=== PATIENT | female | born 1950 | race Caucasian/White ===

== ENCOUNTER 2019-05-25 09:06 | Day surgery (SDC) | payer MEDICARE, OTHER ==
[~2019-05-25] VITALS: Ht 157.5 cm; Wt 63.0 kg
[~2019-05-25 09:06] MED LIST: ASPIRIN EC325 MG PO; B COMPLEX # 11 EACH PO; ESOMEPRAZOLE MA40 MG PO; HYDROCHLOROTH12.5 MG PO; LISINOPRIL20 MG PO; METOPROLOL TART25 MG PO; ONDANSETRON ODT8 MG PO; SIMVASTATIN40 MG PO; TYLENOL325 M1 PO
[2019-05-25] MEDS ORDERED: NEXIUM40 MG PO (09:25)
--- NOTE | 2019-05-25 11:40 | NUR ---
05/25/19 1140 Naomy Casey 1133 PATIENT ARRIVES TO PACU AWAKE, BUT DOES NOT REMEMBER PROCEDURE. RESP EVEN AND UNLABORED, ROOM AIR SATS >90%. DENIES PAIN OR NAUSEA. 1140 PATIENT REPOSITIONS SELF IN BED. PUTS GLASSES BACK ON. DRINKING APPLE JUICE. DENIES PAIN OR NAUSEA.
--- NOTE | 2019-05-25 16:56 | OR ---
[facility] [address] [place], [place] [address] Signed DATE OF OPERATION: 05/25/2019 SURGEON: Ludwig Clark MD PREOPERATIVE DIAGNOSES: 1. Epigastric abdominal pain. 2. Anorexia and nausea. 3. Weight loss. 4. Change in bowel habits with diarrhea and constipation. 5. Recently treated Helicobacter pylori. POSTOPERATIVE DIAGNOSES: 1. Mild gastroduodenitis. 2. Question proximal esophagitis versus scope trauma. PROCEDURES: EGD with CLOtest and biopsies of the duodenum, pyloric bulb, antrum, GE junction, proximal esophagus. ESTIMATED BLOOD LOSS: None. INDICATIONS: Magali is a 69-year-old female, who was asked to see me for an upper endoscopy. She has been having annoying epigastric abdominal pain. It seems to be better after she eats. She also has been anorexic and having some nausea. She is now down to 15 pounds over the last 3 months. She said she generally loves to eat. She feels like she has had a change in bowel habits with diarrhea and constipation. She thinks maybe there has been some blood in that and maybe there was some melena. She was positive for Helicobacter pylori, so she finished up her clarithromycin, metronidazole and her Nexium. It looks like the clarithromycin may have upset her stomach. She is now maintained on her Nexium. She has had ongoing symptoms. Consequently, she was asked to see me for an upper endoscopy. She just had her colonoscopy last year. In the office, I met with Magali and her daughter. We had reviewed the above findings in detail. They understand endoscopy quite well. Nevertheless, I gave them a pamphlet on upper endoscopy, so they could read that in detail at home. They also understands the need for IV conscious sedation. She understand she will need someone to take her home afterwards. They had expressed understanding and wished to proceed. PROCEDURE NOTE: Electronically Signed By: LUDWIG CLARK MD 05/25/19 1656 PATIENT NAME: MAGALI FRIEND OPERATIVE REPORT DATE OF : 48 REPORT #: [id number] PHYSICIAN: LUDWIG CLARK MD PCP: PANCHO WEISS MD REPORT IS CONFIDENTIAL AND NOT TO BE RELEASED WITHOUT AUTHORIZATION [facility] [address] [place], [place] [address] Signed Magali was taken into our endoscopy suite and placed in the supine semi-recumbent position. She was given IV sedation with 4 mg of Versed and 100 mcg of fentanyl. The bite block was utilized for the case. The adult gastroscope was introduced and advanced quite readily down the esophagus through the stomach out into the duodenum itself under direct visualization without difficulty. The duodenum proper was unremarkable. We went ahead and took a biopsy because of the history of diarrhea. As we came back toward the pyloric bulb, we could see lymphoplasia and just very little minute irritation. We took a biopsy of the pyloric bulb for pathologic review. Similarly, she had very faint erythematous changes mainly in the distal half of her stomach. It suggests she may have resolving H pylori associated gastritis. We took a biopsy from the antrum for pathologic review as well as CLOtest. Upon retroflexion of the scope, she may have a little hourglassing around the midportion of her stomach. This would suggest she could have a large hiatal hernia with half her stomach up in the chest. However, it was very difficult to ascertain that clearly on the endoscopy. She could consider a barium swallow. However, the GE junction itself was fine. No obvious hiatal hernia right at the GE junction. No gastric or esophageal varices. No ulcerations in the duodenum or stomach. The scope had been withdrawn up through the GE junction, which was compliant without stricture. Her Z-line is basically intact. We went ahead and took a single biopsy right on the edge of the Z-line for pathologic review. The distal and middle esophagus were unremarkable. In the proximal esophagus just a few centimeters below the upper esophageal sphincter, we saw a linear area of patchy erythematous change, may have very well been from some scope trauma. We did not see that going in. Nevertheless, we went ahead and took a biopsy on the end of that for pathologic review. The scope was then withdrawn in the posterior oropharynx. The vocal cords and arytenoids were completely fine. After this, the scope was completely withdrawn. Magali tolerated the procedure quite well. RECOMMENDATIONS: I will see Magali back in my office in 7 to 14 days to review her results, particularly the CLOtest. If she would like, she might consider a barium swallow as well to evaluate for hiatal hernia. Ludwig Clark MD ALB/GEORGETTEL /[id number] Electronically Signed By: LUDWIG CLARK MD 05/25/19 1656 PATIENT NAME: MAGALI FRIEND OPERATIVE REPORT DATE OF : 48 REPORT #: [id number] PHYSICIAN: LUDWIG CLARK MD PCP: PANCHO WEISS MD REPORT IS CONFIDENTIAL AND NOT TO BE RELEASED WITHOUT AUTHORIZATION [facility] [address] [place], [place] [address] Signed cc: MD Rula Luo FNP Andrea Carrasco, MD Copies: LUDWIG CLARK MD, MARY FNP ~ Electronically Signed By: LUDWIG CLARK MD 05/25/19 1656 PATIENT NAME: MAGALI FRIEND OPERATIVE REPORT DATE OF : 48 REPORT #: [id number] PHYSICIAN: LUDWIG CLARK MD PCP: PANCHO WEISS MD REPORT IS CONFIDENTIAL AND NOT TO BE RELEASED WITHOUT AUTHORIZATION
== END 2019-05-25 12:05 | disposition home or self-care (01) ==
LOC: DS 09:06
PROVIDERS: Colon & Rectal Surgery
PROC: 0DB78ZX Excision of Stomach, Pylorus, Via Natural or Artificial Opening Endoscopic, Diagnostic (ICD-10-PCS; 2019-05-25)
PROC: 0DB48ZX Excision of Esophagogastric Junction, Via Natural or Artificial Opening Endoscopic, Diagnostic (ICD-10-PCS; 2019-05-25)
PROC: 0DB18ZX Excision of Upper Esophagus, Via Natural or Artificial Opening Endoscopic, Diagnostic (ICD-10-PCS; 2019-05-25)
PROC: 0DB98ZX Excision of Duodenum, Via Natural or Artificial Opening Endoscopic, Diagnostic (ICD-10-PCS; principal; 2019-05-25 10:45)
DX: K29.50 Unspecified chronic gastritis without bleeding (principal); K29.80 Duodenitis without bleeding; R63.0 Anorexia; R63.4 Abnormal weight loss; R19.4 Change in bowel habit; K59.00 Constipation, unspecified; R19.7 Diarrhea, unspecified; I25.2 Old myocardial infarction; I10 Essential (primary) hypertension; E78.5 Hyperlipidemia, unspecified; Z95.5 Presence of coronary angioplasty implant and graft; Z88.1 Allergy status to other antibiotic agents; Z79.82 Long term (current) use of aspirin; Z79.899 Other long term (current) drug therapy
CPT/HCPCS: 86677; 99153; G0500; J2250; J3010

== ENCOUNTER 2019-06-09 10:49 | Emergency (ER) | payer MEDICARE, OTHER ==
[~2019-06-09] VITALS: Ht 157.5 cm; Wt 63.0 kg
[~2019-06-09 10:49] MED LIST changes: +NEXIUM40 MG PO
== END 2019-06-09 12:21 | disposition short-term general hospital (02) ==
LOC: ED 10:49
DX: N19 Unspecified kidney failure (principal); R63.4 Abnormal weight loss; Z87.891 Personal history of nicotine dependence; Z88.1 Allergy status to other antibiotic agents; Z88.2 Allergy status to sulfonamides; Z79.82 Long term (current) use of aspirin; Z79.899 Other long term (current) drug therapy
CPT/HCPCS: 99285

== ENCOUNTER 2020-08-05 09:01 | Emergency (ER) | payer MEDICARE, OTHER ==
[~2020-08-05] VITALS: Ht 157.5 cm; Wt 59.0 kg
--- OUTSIDE RECORDS SUMMARY | 2020-08-05 09:04 | XMS ---
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 CARE PROVIDERS There are no care providers on record at this time. Laquita has no Care Guidelines for this patient. Lachelle VISIT COUNT (12 MO.) 1 [place] [address] MARIAM Frias TOTAL 2 NOTE: Visits indicate total known visits. ED/C VISIT TRACKING (12 MO.) 08/05/2020 09:02 [facility] [place] TYPE: Emergency COMPLAINT: - [facility] DIAGNOSES: - Dependence on renal dialysis - Dizziness - Dizziness and giddiness - Wound - End stage renal disease - Shortness of Breath INPATIENT VISIT TRACKING (12 MO.) No inpatient visits to display in this time frame [email or web address]
[2020-08-05] MEDS ORDERED: AZITHROMYCIN250 MG PO (09:07)
[2020-08-05] MEDS ORDERED: AMLODIPINE BESYL5 MG PO (09:07)
[2020-08-05] MEDS ORDERED: METOPROLOL SUCC25 MG PO (09:08)
[2020-08-05] MEDS ORDERED: OMEPRAZOLE20 MG PO (09:08)
[2020-08-05] MEDS ORDERED: ONDANSETRON HCL8 MG PO (09:08)
[2020-08-05] MEDS ORDERED: ROSUVASTATIN CA10 MG PO (09:09)
[2020-08-05] MEDS ORDERED: PREDNISONE20 MG PO (09:32)
[2020-08-05] MEDS ORDERED: OMEPRAZOLE20 M2 PO (09:33)
--- NOTE | 2020-08-05 14:19 | EKG ---
[facility] [address] [facility] [place], [place] [address] Signed Normal sinus rhythm Normal ECG No previous ECGs available Confirmed by HYACINTH MCKNIGHT MD ([id number]) on 08/05/2020 2:19:15 PM Electronically Signed By: HYACINTH MCKNIGHT MD 08/05/20 1419 PATIENT NAME: LANEY FRIEND Electrocardiogram DATE OF : 48 PHYSICIAN: HYACINTH MCKNIGHT MD REPORT #: [id number] REPORT IS CONFIDENTIAL AND NOT TO BE RELEASED WITHOUT AUTHORIZATION
== END 2020-08-05 15:35 | disposition short-term general hospital (02) ==
LOC: ED 09:01
DX: J18.9 Pneumonia, unspecified organism (principal); I50.9 Heart failure, unspecified; Z99.2 Dependence on renal dialysis; Z20.828 Contact with and (suspected) exposure to other viral communicable diseases; Z87.891 Personal history of nicotine dependence; Z88.8 Allergy status to other drugs, medicaments and biological substances; Z88.1 Allergy status to other antibiotic agents; Z88.2 Allergy status to sulfonamides; Z79.899 Other long term (current) drug therapy; Z79.82 Long term (current) use of aspirin; Z79.52 Long term (current) use of systemic steroids
CPT/HCPCS: 71045; 80048; 81001; 83605; 83735; 83880; 84484; 85025; 93005; 93010; 96374; 99285-25; J1940; U0003

== ENCOUNTER 2020-10-21 20:50 | Emergency (ER) | payer MEDICARE, OTHER ==
[~2020-10-21] VITALS: Ht 154.9 cm; Wt 59.9 kg
[~2020-10-21 20:50] MED LIST changes: +AMLODIPINE BESYL5 MG PO; +AZITHROMYCIN250 MG PO; +METOPROLOL SUCC25 MG PO; +OMEPRAZOLE20 M2 PO; +OMEPRAZOLE20 MG PO; +ONDANSETRON HCL8 MG PO; +PREDNISONE20 MG PO; +ROSUVASTATIN CA10 MG PO
[2020-10-21] MEDS ORDERED: IPRATROPIUM BRO30 ML NAS (21:26)
[2020-10-21] MEDS ORDERED: AUGMENTIN 875-1 EACH PO (22:20)
== END 2020-10-21 22:33 | disposition home or self-care (01) ==
LOC: ED 20:50
PROC: 093K7ZZ Control Bleeding in Nasal Mucosa and Soft Tissue, Via Natural or Artificial Opening (ICD-10-PCS; principal; 2020-10-21)
DX: R04.0 Epistaxis (principal); Z87.891 Personal history of nicotine dependence; Z88.1 Allergy status to other antibiotic agents; Z88.2 Allergy status to sulfonamides; Z79.899 Other long term (current) drug therapy; Z79.82 Long term (current) use of aspirin; Z99.2 Dependence on renal dialysis
CPT/HCPCS: 30903; 99283-25

== ENCOUNTER 2020-12-22 07:41 | Emergency (ER) | payer MEDICARE, OTHER ==
[~2020-12-22] VITALS: Ht 154.9 cm; Wt 59.9 kg
[~2020-12-22 07:41] MED LIST changes: +AUGMENTIN 875-1 EACH PO; +IPRATROPIUM BRO30 ML NAS
[2020-12-22] MEDS ORDERED: IPRAT-ALBUT 0.5-3 ML INH (07:59)
== END 2020-12-22 11:30 | disposition home or self-care (01) ==
LOC: ED 07:41
DX: R06.00 Dyspnea, unspecified (principal); I50.9 Heart failure, unspecified; J84.10 Pulmonary fibrosis, unspecified; Z87.891 Personal history of nicotine dependence; Z88.8 Allergy status to other drugs, medicaments and biological substances; Z88.1 Allergy status to other antibiotic agents; Z88.2 Allergy status to sulfonamides; Z79.899 Other long term (current) drug therapy; Z79.82 Long term (current) use of aspirin
CPT/HCPCS: 71045; 80053; 83880; 84484; 85025; 99285-25

== ENCOUNTER → 2021-01-05 | Emergency (ER) | payer MEDICARE, OTHER ==
[~2021-01-05] VITALS: Ht 154.9 cm; Wt 59.0 kg
[~2021-01-05] MED LIST changes: +IPRAT-ALBUT 0.5-3 ML INH
--- OUTSIDE RECORDS SUMMARY | 2021-01-05 14:36 | XMS ---
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 Laquita has no Care Guidelines for this patient. [facility]achelle [facility] MO.) [facility] T[facility] 4 NOTE: Visits indicate total known visits. ED/UCC VISIT TRACKING (12 MO.) 01/05/2021 14:31 [facility] [place] TYPE: Emergency COMPLAINT: - BLOOD IN STOOL 12/22/2020 07:41 [facility] [place] TYPE: Emergency COMPLAINT: - SOB DIAGNOSES: - Allergy status to sulfonamides - Allergy status to other antibiotic agents - Heart failure, unspecified - stay cutter (current) use of aspirin - Other echocardiograph technician (current) drug therapy - Dyspnea, unspecified - Personal history of nicotine dependence - Shortness of breath - Allergy status to other drugs, medicaments and biological substances - Pulmonary fibrosis, unspecified 10/21/2020 20:50 [facility] [place] TYPE: Emergency COMPLAINT: - NOSE BLEED THAT WILL NOT STOP DIAGNOSES: - Epistaxis - stay cutter (current) use of aspirin - Other fpc (current) drug therapy - Allergy status to other antibiotic agents - Allergy status to sulfonamides - Personal history of nicotine dependence - Dependence on renal dialysis 08/05/2020 09:02 [facility] [place] TYPE: Emergency COMPLAINT: - SOB DIAGNOSES: - Allergy status to sulfonamides - Personal history of nicotine dependence - Other fpc (current) drug therapy - stay cutter (current) use of systemic steroids - Allergy status to other antibiotic agents - Heart failure, unspecified - Allergy status to other drugs, medicaments and biological substances - Contact with and (suspected) exposure to other viral communicable diseases - Allergy status to sulfonamides - stay cutter (current) use of aspirin - Pneumonia, unspecified organism - Allergy status to other drugs, medicaments and biological substances - Allergy status to other antibiotic agents - Dependence on renal dialysis - Shortness of breath INPATIENT VISIT TRACKING (12 MO.) 08/05/2020 19:11 [facility] [place] TYPE: General Medicine COMPLAINT: - Pneumonia DIAGNOSES: - Pneumonia [email or web address]
--- NOTE | 2021-01-07 13:14 | EKG ---
[facility] [address] [facility] [place] [address] Signed Atrial flutter with 2:[address] and T wave abnormality Abnormal ECG When compared with ECG of 05-AUG-2020 09:18, Atrial flutter has replaced Sinus rhythm ST now depressed in Inferior leads Confirmed by DEB PURVIS MD ([id number]) on 01/07/2021 1:13:58 PM Electronically Signed By: DEB PURVIS MD 01/07/21 1314 PATIENT NAME: LANEY FRIEND Electrocardiogram DATE OF : 48 PHYSICIAN: DEB PURVIS MD REPORT #: [id number] REPORT IS CONFIDENTIAL AND NOT TO BE RELEASED WITHOUT AUTHORIZATION
== END ==
LOC: ED 14:30
DX: K62.5 Hemorrhage of anus and rectum (principal); I48.91 Unspecified atrial fibrillation; Z88.8 Allergy status to other drugs, medicaments and biological substances; Z88.1 Allergy status to other antibiotic agents; Z88.2 Allergy status to sulfonamides; Z79.899 Other long term (current) drug therapy; Z79.82 Long term (current) use of aspirin
CPT/HCPCS: 74176; 74177; 80053; 85025; 85610; 85730; 86850; 86900; 86901; 93005; 93010; 96374; 96376; 99285-25; C9803; J7040; Q9967; U0003

== ENCOUNTER 2021-06-29 17:07 | Emergency (ER) | payer MEDICARE, OTHER ==
[~2021-06-29] VITALS: Ht 154.9 cm; Wt 59.6 kg
[2021-06-29] MEDS ORDERED: BISOPROLOL FUMAR5 MG PO (17:27)
[2021-06-29] MEDS ORDERED: PREDNISONE2.5 MG PO (17:29)
[2021-06-29] MEDS ORDERED: DOFETILIDE125 MCG PO (17:29)
--- NOTE | 2021-06-30 18:10 | EKG ---
[facility] [address] [facility] [place] [address] Signed Sinus rhythm with occasional premature ventricular complexes Nonspecific ST and T wave abnormality Abnormal ECG When compared with ECG of 05-JAN-2021 14:48, Sinus rhythm has replaced Atrial flutter ST no longer depressed in Inferior leads T wave amplitude has increased in Anterior leads Confirmed by HYACINTH MCKNIGHT MD ([id number]) on 06/30/2021 6:10:09 PM Electronically Signed By: HYACINTH MCKNIGHT MD 06/30/21 1810 PATIENT NAME: LANEY FRIEND Electrocardiogram DATE OF : 48 PHYSICIAN: HYACINTH MCKNIGHT MD REPORT #: [id number] REPORT IS CONFIDENTIAL AND NOT TO BE RELEASED WITHOUT AUTHORIZATION
== END 2021-06-29 20:40 | disposition home or self-care (01) ==
LOC: ED 17:07
DX: R00.2 Palpitations (principal); Z88.8 Allergy status to other drugs, medicaments and biological substances; Z88.2 Allergy status to sulfonamides; Z88.1 Allergy status to other antibiotic agents; Z79.899 Other long term (current) drug therapy; Z79.82 Long term (current) use of aspirin; Z79.52 Long term (current) use of systemic steroids
CPT/HCPCS: 80053; 83735; 84484; 85025; 93005; 93010; 99285-25

== ENCOUNTER 2021-08-30 19:34 | Emergency (ER) | payer MEDICARE, OTHER ==
[~2021-08-30] VITALS: Ht 154.9 cm; Wt 60.5 kg
[~2021-08-30 19:34] MED LIST changes: +BISOPROLOL FUMAR5 MG PO; +DOFETILIDE125 MCG PO; +PREDNISONE2.5 MG PO
--- NOTE | 2021-09-01 07:43 | EKG ---
[facility] [address] [facility] [place] [address] Signed Normal sinus rhythm Nonspecific ST abnormality Abnormal ECG When compared with ECG of 29-JUN-2021 17:12, premature ventricular complexes are no longer present Confirmed by HYACINTH MCKNIGHT MD ([id number]) on 09/01/2021 7:42:53 AM Electronically Signed By: HYACINTH MCKNIGHT MD 09/01/21 0743 PATIENT NAME: LANEY FRIEND Electrocardiogram DATE OF : 48 PHYSICIAN: HYACINTH MCKNIGHT MD REPORT #: [id number] REPORT IS CONFIDENTIAL AND NOT TO BE RELEASED WITHOUT AUTHORIZATION
== END 2021-08-30 22:10 | disposition home or self-care (01) ==
LOC: ED 19:34
DX: R41.82 Altered mental status, unspecified (principal); Z20.822 Contact with and (suspected) exposure to COVID-19; Z88.8 Allergy status to other drugs, medicaments and biological substances; Z88.1 Allergy status to other antibiotic agents; Z88.2 Allergy status to sulfonamides; Z79.899 Other long term (current) drug therapy; Z79.82 Long term (current) use of aspirin; Z79.52 Long term (current) use of systemic steroids
CPT/HCPCS: 71045; 80053; 81001; 83605; 85025; 99285-25; C9803; G0480; U0003

== ENCOUNTER 2021-10-10 09:16 | Emergency (ER) | payer MEDICARE, OTHER ==
[~2021-10-10] VITALS: Ht 154.9 cm; Wt 60.3 kg
--- OUTSIDE RECORDS SUMMARY | 2021-10-10 09:24 | XMS ---
PreManage Notification: LANEY FRIEND Security Sign Writer Hand Events No recent Security Events currently on file CRITERIA MET - [facility] [place] [facility] - 2 Visits in 30 Days CARE PROVIDERS [facility] 01/08/2021-Current PHONE: Unknown Laquita has no Care Guidelines for this patient. Lachelle VISIT COUNT (12 MO.) [address] [place] [address] Rula Parrish [address] [place] [address] TOTAL 7 NOTE: Visits indicate total known visits. ED/UCC VISIT TRACKING (12 MO.) 10/10/2021 09:16 [facility] [place] TYPE: Emergency COMPLAINT: - NOSE BLEED 10/03/2021 17:54 [facility] TYPE: Emergency DIAGNOSES: - afib, fatigue - Fatigue 08/30/2021 19:34 [facility] [place] TYPE: Emergency COMPLAINT: - ALTERED MENTAL STATUS DIAGNOSES: - Allergy status to other antibiotic agents - group home (current) use of systemic steroids - Allergy status to other drugs, medicaments and biological substances - Altered mental status, unspecified - group home (current) use of aspirin - Other half-way (current) drug therapy - Allergy status to sulfonamides 06/29/2021 17:07 [facility] [place] TYPE: Emergency COMPLAINT: - HEART PALPATATIONS DIAGNOSES: - Allergy status to sulfonamides - Other half-way (current) drug therapy - Palpitations - Allergy status to other antibiotic agents - group home (current) use of aspirin - Allergy status to other drugs, medicaments and biological substances - group home (current) use of systemic steroids 01/05/2021 14:31 [facility] [place] TYPE: Emergency COMPLAINT: - BLOOD IN STOOL DIAGNOSES: - Unspecified atrial fibrillation - Other half-way (current) drug therapy - Allergy status to sulfonamides - extermination inspector (current) use of aspirin - Shortness of breath - Allergy status to other antibiotic agents - Allergy status to other drugs, medicaments and biological substances - Hemorrhage of anus and rectum - Hemorrhage of anus and rectum 12/22/2020 07:41 [facility] [place] TYPE: Emergency COMPLAINT: - SOB DIAGNOSES: - Allergy status to sulfonamides - Allergy status to other antibiotic agents - Heart failure, unspecified - extermination inspector (current) use of aspirin - Other half-way (current) drug therapy - Dyspnea, unspecified - Personal history of nicotine dependence - Shortness of breath - Allergy status to other drugs, medicaments and biological substances - Pulmonary fibrosis, unspecified 10/21/2020 20:[address] [facility] [place] TYPE: Emergency COMPLAINT: - NOSE BLEED THAT WILL NOT STOP DIAGNOSES: - Epistaxis - group home (current) use of aspirin - Other half-way (current) drug therapy - Allergy status to other antibiotic agents - Allergy status to sulfonamides - Personal history of nicotine dependence - Dependence on renal dialysis INPATIENT VISIT TRACKING (12 MO.) No inpatient visits to display in this time frame [email or web address]
[2021-10-10] MEDS ORDERED: ELIQUIS5 MG PO (09:34)
== END 2021-10-10 13:01 | disposition home or self-care (01) ==
LOC: ED 09:16
DX: R04.0 Epistaxis (principal); Z88.8 Allergy status to other drugs, medicaments and biological substances; Z88.2 Allergy status to sulfonamides; Z88.1 Allergy status to other antibiotic agents; Z79.899 Other long term (current) drug therapy; Z79.82 Long term (current) use of aspirin; Z79.52 Long term (current) use of systemic steroids
CPT/HCPCS: 30903; 99283-25

== ENCOUNTER 2021-10-12 18:09 | Emergency (ER) | payer MEDICARE, OTHER ==
[~2021-10-12] VITALS: Ht 154.9 cm; Wt 60.5 kg
[~2021-10-12 18:09] MED LIST changes: +ELIQUIS5 MG PO
--- OUTSIDE RECORDS SUMMARY | 2021-10-12 18:14 | XMS ---
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 Lachelle VISIT COUNT (12 MO.) 1 [facility] Rula Parrish [address] [place] [address] TOTAL 8 NOTE: Visits indicate total known visits. ED/UCC VISIT TRACKING (12 MO.) 10/12/2021 18:10 [facility] TYPE: Emergency COMPLAINT: - LOW OXYGEN LEVELS 10/10/2021 09:16 [facility] [place] TYPE: Emergency COMPLAINT: - NOSE BLEED 10/03/2021 17:54 [facility] [place] TYPE: Emergency DIAGNOSES: - afib, fatigue - Fatigue 08/30/2021 19:34 [facility] [place] TYPE: Emergency COMPLAINT: - ALTERED MENTAL STATUS DIAGNOSES: - Allergy status to other antibiotic agents - long term care pharmacist (current) use of systemic steroids - Allergy status to other drugs, medicaments and biological substances - Altered mental status, unspecified - long term care pharmacist (current) use of aspirin - Other alf (current) drug therapy - Allergy status to sulfonamides 06/29/2021 17:07 [facility] [place] [facility] [place] TYPE: Emergency COMPLAINT: - HEART PALPATATIONS DIAGNOSES: - Allergy status to sulfonamides - Other intermediate frame tender (current) drug therapy - Palpitations - Allergy status to other antibiotic agents - long term care pharmacist (current) use of aspirin - Allergy status to other drugs, medicaments and biological substances - shelter (current) use of systemic steroids 01/05/2021 14:31 [facility] [place] [facility] [place] TYPE: Emergency COMPLAINT: - BLOOD IN STOOL DIAGNOSES: - Unspecified atrial fibrillation - Other intermediate frame tender (current) drug therapy - Allergy status to sulfonamides - long term care pharmacist (current) use of aspirin - Shortness of [...] antibiotic agents - Heart failure, unspecified - long term care pharmacist (current) use of aspirin - Other intermediate frame tender (current) drug therapy - Dyspnea, unspecified - Personal history of nicotine dependence - Shortness of breath - Allergy status to other drugs, medicaments and biological substances - Pulmonary fibrosis, unspecified 10/21/2020 20:50 [facility] [place] TYPE: Emergency COMPLAINT: - NOSE BLEED THAT WILL NOT STOP DIAGNOSES: - Epistaxis - long term care pharmacist (current) use of aspirin - Other intermediate frame tender (current) drug therapy - Allergy status to other antibiotic agents - Allergy status to sulfonamides - Personal history of nicotine dependence - Dependence on renal dialysis INPATIENT VISIT TRACKING (12 MO.) No inpatient visits to display in this time frame [id number]
== END 2021-10-12 19:42 | disposition home or self-care (01) ==
LOC: ED 18:09
DX: R04.0 Epistaxis (principal); Z88.1 Allergy status to other antibiotic agents; Z88.8 Allergy status to other drugs, medicaments and biological substances; Z79.899 Other long term (current) drug therapy; Z79.82 Long term (current) use of aspirin
CPT/HCPCS: 99284

== ENCOUNTER 2022-05-14 21:43 | Emergency (ER) | payer MEDICARE, OTHER ==
[~2022-05-14] VITALS: Ht 154.9 cm; Wt 60.5 kg
[2022-05-14] MEDS ORDERED: FUROSEMIDE80 MG PO (22:36)
--- NOTE | 2022-05-15 07:19 | EKG ---
[facility] [address] [facility] [place] [address] Signed Sinus rhythm with premature atrial complexes RSR' or QR pattern in V1 suggests right ventricular conduction delay Nonspecific ST and T wave abnormality Prolonged QT Abnormal ECG When compared with ECG of 30-AUG-2021 19:52, premature atrial complexes are now present Confirmed by HYACINTH MCKNIGHT MD ([id number]) on 05/15/2022 7:19:44 AM Electronically Signed By: HYACINTH MCKNIGHT MD 05/15/22 0719 PATIENT NAME: LANEY FRIEND Electrocardiogram DATE OF : 48 PHYSICIAN: HYACINTH MCKNIGHT MD REPORT #: [id number] REPORT IS CONFIDENTIAL AND NOT TO BE RELEASED WITHOUT AUTHORIZATION
== END 2022-05-14 23:18 | disposition home or self-care (01) ==
LOC: ED 21:43
DX: I50.9 Heart failure, unspecified (principal); Z99.2 Dependence on renal dialysis; Z88.8 Allergy status to other drugs, medicaments and biological substances; Z88.2 Allergy status to sulfonamides; Z88.1 Allergy status to other antibiotic agents; Z79.899 Other long term (current) drug therapy; Z79.82 Long term (current) use of aspirin
CPT/HCPCS: 36415; 71045; 80053; 83735; 84484; 85025; 85060; 87502; 93005; 93010; 96374; 99285-25; J1940; U0003

== ENCOUNTER 2022-07-24 13:06 | Emergency (ER) | payer MEDICARE, OTHER ==
[~2022-07-24] VITALS: Ht 154.9 cm; Wt 57.3 kg
[~2022-07-24 13:06] MED LIST changes: +FUROSEMIDE80 MG PO
--- NOTE | 2022-07-24 20:59 | EKG ---
[facility] [address] [place] [address] Signed Atrial fibrillation with rapid ventricular response Minimal voltage criteria for LVH, may be normal variant ( [place] product ) Nonspecific ST and T wave abnormality Abnormal ECG When compared with ECG of 14-MAY-2022 21:46, Atrial fibrillation has replaced Sinus rhythm Vent. rate has increased BY 81 BPM RSR' pattern in V1 is no longer present ST now depressed in Anterior leads Confirmed by Ileana Campo MD () on 07/24/2022 8:59:15 PM Electronically Signed By: ILEANA CAMPO MD 07/24/222058 PATIENT NAME: LANEY FREIND Electrocardiogram DATE OF : 48 PHYSICIAN: ILEANA CAMPO MD REPORT #: [id number] REPORT IS CONFIDENTIAL AND NOT TO BE RELEASED WITHOUT AUTHORIZATION
--- NOTE | 2022-07-24 21:01 | EKG ---
[facility] [address] [place] [address] Signed Sinus bradycardia with marked sinus arrhythmia Nonspecific ST abnormality Abnormal ECG When compared with ECG of 24-JUL-2022 13:26, (Unconfirmed) Sinus rhythm has replaced Atrial fibrillation Vent. rate has decreased BY 103 BPM T wave inversion no longer evident in Lateral leads Confirmed by Ileana Campo MD () on 07/24/2022 9:00:59 PM Electronically Signed By: ILEANA CAMPO MD 07/24/222100 PATIENT NAME: LANEY FRIEND Electrocardiogram DATE OF : 48 PHYSICIAN: ILEANA CAMPO MD REPORT #: [id number] REPORT IS CONFIDENTIAL AND NOT TO BE RELEASED WITHOUT AUTHORIZATION
== END 2022-07-24 15:22 | disposition home or self-care (01) ==
LOC: ED 13:06
DX: I48.91 Unspecified atrial fibrillation (principal); Z88.8 Allergy status to other drugs, medicaments and biological substances; Z88.2 Allergy status to sulfonamides; Z88.1 Allergy status to other antibiotic agents; Z79.899 Other long term (current) drug therapy; Z79.82 Long term (current) use of aspirin; Z79.52 Long term (current) use of systemic steroids
CPT/HCPCS: 36415; 71045; 80053; 83735; 84484; 85025; 93005; 93010; 96374; 99285-25; J7040